=== PATIENT | female | born 1955 | race Caucasian/White ===

== ENCOUNTER 2016-07-28 07:00 | Outpatient (CLI) ==
[2016-01-19 13:09] VITALS: BMI 25.9
[2016-07-28 07:39] LABS: BASOPHILS % (AUTO) 0.8 % (0.0-3.0); EOSINOPHILS # (AUTO) 0.7 K/ul (0.0-0.7); EOSINOPHILS % (AUTO) 13.6 % (0.0-7.0); HEMATOCRIT 37.7 % (37.0-47.0); HEMOGLOBIN 12.9 g/dl (12.0-16.0); IMMATURE GRANULOCYTE % (AUTO) 0.2 % (0.0-5.0); LYMPHOCYTES % (AUTO) 41.7 (10.0-50.0); MEAN CORPUSCULAR HEMOGLOBIN 31.5 pg (27.0-31.0); MEAN CORPUSCULAR HGB CONC 34.2 (31.8-35.4); MONOCYTES # (AUTO) 0.3 K/uL (0.4-2.0); MONOCYTES % (AUTO) 6.4 (0-10); NEUTROPHILS # (AUTO) 1.8 K/ul (2.0-6.9); NEUTROPHILS % (AUTO) 37.3; PLATELET COUNT 201 10^3/uL (140-440); WHITE BLOOD COUNT 4.87 K/ul (4.6-10.2)
[2016-07-28 08:04] LABS: ALBUMIN 3.2 g/dL (3.4-5.0); BILIRUBIN,TOTAL 0.34 mg/dL (0.00-1.20); BUN/CREATININE RATIO 18.75; CALCIUM 8.9 mg/dL (8.2-10.2); CHOL/HDL RATIO 3.2 (4.5-5.5); CREATININE 0.8 mg/dL (0.60-1.30); TOTAL PROTEIN 6.4 g/dL (6.4-8.2)
--- NOTE | 2016-07-29 09:44 | MAMMO ---
EXAM: Digital screening mammogram HISTORY: Screening COMPARISON: 04/09/2015 FINDINGS: Digital MLO and CC views of the right and left breast were performed. There are scatter ed fibroglandular densities. There is no evidence for mass, asymmetry, distortion, or suspicious ca lcifications in either breast. IMPRESSION: 1. No evidence of malignancy in the right or left breast. 2. Annual screening mammogram is recommended in one year. BIRADS category 1, negative examination
== END 2016-07-28 07:01 | disposition home or self-care (01) ==
LOC: RAD 07:00
PROVIDERS: ATTEND Internal Medicine
DX: Z12.31 Encounter for screening mammogram for malignant neoplasm of breast (principal); E78.5 Hyperlipidemia, unspecified; M81.0 Age-related osteoporosis without current pathological fracture; K21.9 Gastro-esophageal reflux disease without esophagitis; M19.90 Unspecified osteoarthritis, unspecified site
CPT/HCPCS: 36415; 80053; 80061; 82306; 83036; 84439; 84443; 85025

== ENCOUNTER 2016-08-10 12:01 | Outpatient (CLI) ==
[2016-01-19 13:09] VITALS: BMI 25.9
--- NOTE | 2016-08-10 12:42 | DI ---
EXAM: LEFT HIP, 2 VIEWS HISTORY: Left hip pain FINDINGS: Hip joint is unremarkable. No fracture or dislocation. 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 Soft tissues are unremarkable. IMPRESSION: Hip joint within normal limits. Arthropathy of the left sacroiliac joint.
--- NOTE | 2016-08-11 10:44 | MRI ---
EXAM: Lumbar spine MRI without contrast. HISTORY: Lumbar radiculopathy. COMPARISON: Lumbar spine CT scan 03/11/2014 and lumbar spine MRI 02/19/2014. TECHNIQUE: Multiplanar, multisequence MR images were acquired lumbar spine without contrast. FINDINGS: Five lumbar-type vertebra are present. The lumbar vertebra are normal in height and intr insic bone marrow signal. There is minor thoracolumbar levoscoliosis centered at L2-3. There are s mall ventral osteophytes in the lumbar spine, disc desiccation from L2-3 to L4-5 and mild disc space narrowing at L3-4. Conus medullaris ends at L1 and has normal signal intensity. The visualized ki dneys are unremarkable. There are no paravertebral masses. T12-L1: The intervertebral disc is normal. L1-2: The intervertebral disc is normal. L2-3: There is a minor disc bulge that is asymmetric to the left which minimally narrows the inferi or neural foramina bilaterally. There is no central canal stenosis. L3-4: There is a mild disc bulge with marginal osteophytes that is asymmetric to the left which marv rows the inferior neural foramina bilaterally. Minor bilateral hypertrophic facet arthropathy and m ild ligamentum flavum hypertrophy is present. This causes mild left and minor right neural foramina l stenosis unchanged from the previous MRI. L4-5: There is a minor disc bulge that is asymmetric posteriorly and to the left with a possible ti ny left posterolateral disc extrusion which minimally effaces the left ventral thecal sac. This was not clearly demonstrated on the previous exam and may be artifactual or visualized due to differenc es in slice selection and small size. Minor bilateral facet arthropathy and mild ligamentum flavum hypertrophy is present. This causes left lateral recess stenosis with encroachment on the left L5 nerve roots. There is no central canal stenosis. L5-S1: The intervertebral disc is normal. IMPRESSION: 1. Minor lumbar degenerative spondylosis without significant change compared to 02/19/2014. 2. No lumbar spinal stenosis, significant foraminal stenosis or pars interarticularis defects.
== END 2016-08-10 12:02 | disposition home or self-care (01) ==
LOC: RAD 12:01
PROVIDERS: ATTEND Internal Medicine
DX: M54.16 Radiculopathy, lumbar region (principal); M25.552 Pain in left hip

== ENCOUNTER 2016-11-15 07:05 | Outpatient (CLI) | payer OTHER ==
[2016-01-19 13:09] VITALS: BMI 25.9
== END 2016-11-15 07:06 | disposition home or self-care (01) ==
LOC: LAB 07:05
PROVIDERS: ATTEND Physician Assistant
DX: E05.20 Thyrotoxicosis with toxic multinodular goiter without thyrotoxic crisis or storm (principal)
CPT/HCPCS: 36415; 84443

== ENCOUNTER 2016-12-23 08:21 | Outpatient (CLI) | payer OTHER ==
[2016-01-19 13:09] VITALS: BMI 25.9
[2016-12-23 08:38] LABS: BILIRUBIN,URINE Negative (NEGATIVE); KETONES,URINE Negative (NEGATIVE); LEUKOCYTE ESTERASE ,URINE Trace (NEGATIVE); NITRITE,URINE Negative (NEGATIVE); PROTEIN,URINE Negative (NEGATIVE); URINE, BLOOD Negative (NEGATIVE)
[2016-12-23 08:49] LABS: ADD URINE MICROSCOPIC YES
[2016-12-23 08:52] LABS: BACTERIA,URINE 3+ (NOT PRESENT)
== END 2016-12-23 08:22 | disposition home or self-care (01) ==
LOC: LAB 08:21
PROVIDERS: ATTEND Internal Medicine
DX: R50.9 Fever, unspecified (principal); M54.9 Dorsalgia, unspecified; R30.0 Dysuria
CPT/HCPCS: 81001; 87086; 87186

== ENCOUNTER 2017-02-02 13:32 | Outpatient (CLI) ==
[2016-01-19 13:09] VITALS: BMI 25.9
[2017-02-02 13:47] LABS: BILIRUBIN,URINE Negative (NEGATIVE); KETONES,URINE Negative (NEGATIVE); LEUKOCYTE ESTERASE ,URINE Negative (NEGATIVE); NITRITE,URINE Positive (NEGATIVE); PROTEIN,URINE Negative (NEGATIVE); URINE, BLOOD Negative (NEGATIVE)
[2017-02-02 14:15] LABS: ADD URINE MICROSCOPIC YES; BACTERIA,URINE 1+ (NOT PRESENT)
== END 2017-02-02 13:33 | disposition home or self-care (01) ==
LOC: LAB 13:32
PROVIDERS: ATTEND Internal Medicine
DX: N39.0 Urinary tract infection, site not specified (principal)
CPT/HCPCS: 81001; 87086

== ENCOUNTER 2017-03-07 07:08 | Outpatient (CLI) | payer OTHER ==
[2016-01-19 13:09] VITALS: BMI 25.9
[2017-03-07 07:55] LABS: BASOPHILS % (AUTO) 0.9 % (0.0-3.0); EOSINOPHILS # (AUTO) 0.3 K/ul (0.0-0.7); EOSINOPHILS % (AUTO) 7.3 % (0.0-7.0); HEMATOCRIT 38.7 % (37.0-47.0); HEMOGLOBIN 13.3 g/dl (12.0-16.0); IMMATURE GRANULOCYTE % (AUTO) 0.3 % (0.0-5.0); LYMPHOCYTES # (AUTO) 1.3 K/uL (0.60-3.4); LYMPHOCYTES % (AUTO) 39.1 (10.0-50.0); MEAN CORPUSCULAR HEMOGLOBIN 30.2 pg (27.0-31.0); MEAN CORPUSCULAR HGB CONC 34.4 (31.8-35.4); MONOCYTES # (AUTO) 0.3 K/uL (0.4-2.0); MONOCYTES % (AUTO) 8.7 (0-10); NEUTROPHILS # (AUTO) 1.5 K/ul (2.0-6.9); NEUTROPHILS % (AUTO) 43.7; PLATELET COUNT 200 10^3/uL (140-440); WHITE BLOOD COUNT 3.43 K/ul (4.6-10.2)
[2017-03-07 08:34] LABS: ALBUMIN 3.4 g/dL (3.4-5.0); ALBUMIN/GLOBULIN RATIO 0.94; BILIRUBIN,TOTAL 0.41 mg/dL (0.00-1.20); BUN/CREATININE RATIO 14.44; CALCIUM 9.6 mg/dL (8.2-10.2); CHOL/HDL RATIO 3.5 (4.5-5.5); CREATININE 0.9 mg/dL (0.60-1.30)
== END 2017-03-07 07:09 | disposition home or self-care (01) ==
LOC: LAB 07:08
PROVIDERS: ATTEND Internal Medicine
DX: E78.5 Hyperlipidemia, unspecified (principal); E53.8 Deficiency of other specified B group vitamins
CPT/HCPCS: 36415; 80053; 80061; 82607; 83036; 84443; 85025; 86803

== ENCOUNTER 2017-03-27 09:38 | Observation (INO) ==
--- NOTE | 2017-03-27 10:41 | ED.PDOC ---
General ED Provider: Dr. CECILIA WASHINGTON Chief Complaint: Back Pain Stated Complaint: back pain Time Seen by Physician: 09:45 (fall 1 day ago has paain t/l spine) Mode of Arrival: Walk-In Information Source: Patient Exam Limitations: No limitations Primary Care Provider: ARCELIA ALLEN Nursing and Triage Documentation Reviewed and Agree: Yes Musculoskeletal Complaint Exam - Back Pain Complaint/Exam Mechanism of Injury: Reports: Trauma Onset/Duration: 1 day . pt did fall Symptoms Are: Still present Timing: Constant Episodes Lasting: Days Initial Severity: Moderate Current Severity: Moderate Character: Reports: Aching, Throbbing, Spasmodic Aggravating: Reports: Movements, Lifting, Bending, Walking Alleviating: Reports: Rest, Position Associated Signs and Symptoms: Denies: Swelling, Redness, Bruising, Fever, Weakness, Numbness, Tingling, Abdominal pain, Flank pain, Bladder incontinence, Bowel incontinence, Weight loss, Pain with weight bearing Related History: Reports: Similar episode TAD Risk Factors: Reports: None AAA Risk Factors: Reports: None Cauda Equina Risk Factors: Reports: None Epidural Abcess Risk Factors: Reports: None Related Surgical History: Reports: None Focal Tenderness: Yes (t / l spine) Paraspinal Muscle Tenderness: Yes Paraspinal Muscle Spasm: Yes Scoliosis: No Lordosis: No Focal Weakness: Present: None Focal Sensory Loss: Present: None Gait: Present: Normal Differential Diagnoses: Strain, Sprain Review of Systems - Review Of Systems Constitutional: Reports: No symptoms Eyes: Reports: No symptoms Ears, Nose, Mouth, Throat: Reports: No symptoms Respiratory: Reports: No symptoms Cardiac: Reports: No symptoms GI: Reports: No symptoms : Reports: No symptoms Musculoskeletal: Reports: Back pain Skin: Reports: No symptoms Neurological: Reports: No symptoms Endocrine: Reports: No symptoms Hematologic/Lymphatic: Reports: No symptoms All Other Systems: Reviewed and Negative Past Medical History - Past Medical History Previously Healthy: Yes Endocrine: Reports: Dyslipidemia Cardiovascular: Reports: None Respiratory: Reports: None Hematological: Reports: None Gastrointestinal: Reports: GERD, Pancreatitis Genitourinary: Reports: None Neuro/Psych: Reports: Migraine Musculoskeletal: Reports: Back Pain Cancer: Reports: None Last Menstrual Period: n/a - Surgical History General Surgical History: Reports: Hysterectomy, Tonsillectomy - Family History Family History: Reports: Unknown - Social History Smoking Status: Former smoker Hx Substance Use: No Alcohol Screening: Occasionally Physical Exam - Physical Exam Appearance: Well-appearing, No pain distress, Well-nourished Eyes: VANDANA, EOMI, Conjunctiva clear ENT: Ears normal, Nose normal, Oropharynx normal Respiratory: Airway patent, Breath sounds clear, Breath sounds equal, Respirations nonlabored Cardiovascular: RRR, Pulses normal, No rub, No murmur GI/: Soft, Nontender, No masses, Bowel sounds normal, No Organomegaly Musculoskeletal: No calf tenderness, Limited ROM (lower back ) Skin: Warm, Dry, Normal color Neurological: Sensation intact, Motor intact, Reflexes intact, Cranial nerves intact, Alert, Oriented Psychiatric: Affect appropriate, Mood appropriate Physician Notification - Case Discussed Physician Notified: pmd Time of Notification: 11:00 (entire report was hand delivered to pmd) Admit To: Inpatient Critical Care Note - Critical Care Note Total Time (mins): 0 Course - Course Orders, Labs, Meds: Orders Category Date Time Status Morphine Sulfate [Morphine 2 mg/ml Syringe] MEDS 03/27/17 10:44 Stat 2 mg IM ONCE STA Ondansetron HCl/Pf [Zofran 4 mg/2 ml] MEDS 03/27/17 10:43 Stat 4 mg IM ONCE STA CT LUMBAR SPINE W/O CONTRAST Stat RADS 03/27/17 09:[address] THORACIC SPINE W/O CONTRAST Stat RADS 03/27/17 09:50 Ordered Medications Discontinued Medications Generic Name Dose Route Start Last Admin Trade Name Freq PRN Reason Stop Dose Admin Morphine Sulfate 2 mg 03/27/17 10:44 Morphine 2 Mg/Ml Syringe IM 03/27/17 10:45 ONCE STA Ondansetron HCl 4 mg 03/27/17 10:43 Zofran 4 Mg/2 Ml IM 03/27/17 10:44 ONCE STA Vital Signs: Temp Pulse Resp BP Pulse Ox 03/27/17 09:39 99.5 F 96 H 20 111/84 98 Departure - Departure Time of Disposition: 10:42 Disposition: ADMITTED INPATIENT Discharge Problem: Back pain Qualifiers: Back pain location: low back pain Chronicity: acute Back pain laterality: midline Sciatica presence: without sciatica Qualified Code(s): M54.5 - Low back pain Instructions: Low Back Strain (ED), Acute Low Back Pain (ED) Condition: Good Pt referred to PMD for follow-up: Yes Additional Instructions: Please call your Family Physician as soon as possible to schedule a follow-up appointment. Allergies/Adverse Reactions: Allergies cephalexin monohydrate [From Keflex] Adverse Reaction (Verified 03/27/17 09:54) sulfamethoxazole [From Bactrim] Adverse Reaction (Verified 03/27/17 09:54) tetracycline [Tetracycline] Adverse Reaction (Verified 03/27/17 09:54) trimethoprim [From Bactrim] Adverse Reaction (Verified 03/27/17 09:54) Home Medications: Ambulatory Orders Calcium Carbonate [Calcium] 500 mg PO BID 07/15/13 Cranberry 400 mg PO DAILY 07/15/13 Multivitamin [Multi-Vitamin Daily] 1 tab PO DAILY 07/15/13 Polyethylene Glycol 3350 [Miralax] 17 gm PO DAILY 07/15/13 Pravastatin Sodium 10 mg PO BEDTIME 07/15/13 Trazodone HCl 75 mg PO BEDTIME 07/15/13 Zolmitriptan [Zomig] 2.5 mg PO ONCE PRN 07/15/13 Estradiol/Levonorgestrel [Climara Pro Patch] 0.025 mg TP WEEKLY 07/16/13 Cyclobenzaprine HCl [Flexeril] 10 mg PO BID PRN 12/30/14 Diazepam 5 mg PO ev 6-8 hrs PRN #100 04/20/16 Oxycodone-Acetaminophen 5-325 [Percocet 5-325] 1 tab PO Q12H 03/27/17 Pantoprazole Sodium [Protonix] 40 mg PO DAILY 03/27/17 Sucralfate [Carafate] 1 gm PO ACHS PRN 03/27/17 Disposition Discussed With: Patient, Family
--- NOTE | 2017-03-27 10:42 | CT ---
EXAM: CT lumbar spine without contrast HISTORY: Pain, fall COMPARISON: MRI 08/10/2016 TECHNIQUE: CT lumbar spine performed without intravenous contrast. Coronal and sagittal reformatted images obtained. FINDINGS: There is an acute mild to moderate compression fracture of T12 at the superior endplate. Lumbar vertebral bodies normal in height. No fracture of the lumbar spine. Sacroiliac joints intac t with mild degenerative change. Small multilevel marginal osteophytes. Intervertebral disc spaces maintained. No significant central canal or neural foraminal narrowing identified. IMPRESSION: 1. Mild to moderate acute compression fracture T12. Please see separate report CT thoracic spine. 2. No fracture of the lumbar spine. 3. Mild degenerative changes.
[2017-03-27] MEDS ORDERED: ZOFRAN 4 MG/2 ML IM STA (10:43)
[2017-03-27] MEDS ORDERED: MORPHINE 2 MG/ML SYRINGE IM STA (10:44)
--- NOTE | 2017-03-27 10:44 | CT ---
EXAM: CT thoracic spine. HISTORY: Pain after fall. TECHNIQUE: CT thoracic spine without contrast. Multiplanar images provided. FINDINGS: Compared to CT thorax dated 01/19/2016. There is mild to moderate deformity at the superior endplate of T12 involving the anterior and middle columns which is new since the 2016 exam and has an acute appearance. There is no significant retro pulsion. Pedicles are intact. No other vertebral body deformity is seen. Otherwise normal vertebral body height. No traumatic central canal stenosis or paraspinal hematoma. There is a nearly 2 cm lo w attenuation lesion of the left hepatic lobe which is stable since 2016, likely representing a cyst. IMPRESSION: 1. Acute fracture of the superior endplate of T12. 2. Probable left hepatic lobe cyst. .
[2017-03-27] MEDS ORDERED: MORPHINE 2 MG/ML SYRINGE IVP STA (11:03)
[2017-03-27] MEDS ORDERED: MORPHINE 2 MG/ML SYRINGE IVP PRN (11:03)
[2017-03-27] MEDS ORDERED: ZOFRAN 4 MG/2 ML IVP PRN (11:04)
[2017-03-27] MEDS ORDERED: VALIUM PO PRN (11:05)
[2017-03-27] MEDS: SODIUM CHLORIDE 1,000 ML IV SCH (12:26)
[2017-03-27] MEDS ORDERED: TORADOL IVP STA (14:07)
[2017-03-27] MEDS ORDERED: DECADRON 4 MG/ML SDV IM STA (14:08)
[2017-03-27 14:32] LABS: BASOPHILS % (AUTO) 0.5 % (0.0-3.0); EOSINOPHILS # (AUTO) 0.3 K/ul (0.0-0.7); HEMOGLOBIN 13.1 g/dl (12.0-16.0); IMMATURE GRANULOCYTE % (AUTO) 0.5 % (0.0-5.0); LYMPHOCYTES # (AUTO) 1.2 K/uL (0.60-3.4); LYMPHOCYTES % (AUTO) 21.9 (10.0-50.0); MEAN CORPUSCULAR HEMOGLOBIN 30.2 pg (27.0-31.0); MEAN CORPUSCULAR HGB CONC 33.6 (31.8-35.4); MEAN CORPUSCULAR VOLUME 89.9 fl (81.0-99.0); MONOCYTES # (AUTO) 0.3 K/uL (0.4-2.0); MONOCYTES % (AUTO) 5.7 (0-10); NEUTROPHILS # (AUTO) 3.7 K/ul (2.0-6.9); NEUTROPHILS % (AUTO) 66.4; PLATELET COUNT 205 10^3/uL (140-440); RED BLOOD COUNT 4.34 10^6/ul (4.20-5.40); WHITE BLOOD COUNT 5.61 K/ul (4.6-10.2)
[2017-03-27 15:32] LABS: ALBUMIN 3.4 g/dL (3.4-5.0); ALBUMIN/GLOBULIN RATIO 0.94; ANION GAP 10.7; BILIRUBIN,TOTAL 0.37 mg/dL (0.00-1.20); BUN/CREATININE RATIO 18.82; CALCIUM 9.1 mg/dL (8.2-10.2); CREATININE 0.85 mg/dL (0.60-1.30); POTASSIUM 3.7 mmol/L (3.5-5.10)
[2017-03-27 16:21] VITALS: BMI 27.9
[2017-03-27] MEDS: DICLOFENAC SODIUM PO SCH (17:48)
[2017-03-27] MEDS ORDERED: ZOMIG PO PRN (18:57)
[2017-03-27] MEDS ORDERED: CARAFATE PO PRN (18:57)
[2017-03-27] MEDS: PERCOCET 5-325 PO SCH (19:13)
[2017-03-27] MEDS ORDERED: DESYREL ONE (20:27)
[2017-03-27] MEDS ORDERED: PROTONIX PO STA (20:43)
[2017-03-27] MEDS: CALCIUM 500 + VIT D 200 MG TABLET PO SCH (20:47)
[2017-03-27] MEDS: TORADOL IVP SCH (20:50)
[2017-03-27] MEDS ORDERED: TRAZODONE HCL 75 MG PO SCH ×21 (21:00)
[2017-03-27] MEDS ORDERED: NON-FORMULARY MEDICATION (Calcium Carbonate [Calcium] 500 MG) PO SCH (21:00)
[2017-03-27] MEDS ORDERED: PRAVASTATIN SODIUM 10 MG PO SCH (21:00)
[2017-03-27] MEDS ORDERED: PRAVACHOL PO SCH (21:00)
[2017-03-28] MEDS: SODIUM CHLORIDE 1,000 ML IV SCH (03:19)
[2017-03-28 04:41] LABS: BASOPHILS % (AUTO) 0.2 % (0.0-3.0); EOSINOPHILS % (AUTO) 0.2 % (0.0-7.0); HEMATOCRIT 36.9 % (37.0-47.0); HEMOGLOBIN 12.6 g/dl (12.0-16.0); IMMATURE GRANULOCYTE % (AUTO) 0.5 % (0.0-5.0); LYMPHOCYTES # (AUTO) 0.7 K/uL (0.60-3.4); MEAN CORPUSCULAR HEMOGLOBIN 30.1 pg (27.0-31.0); MEAN CORPUSCULAR HGB CONC 34.1 (31.8-35.4); MEAN CORPUSCULAR VOLUME 88.1 fl (81.0-99.0); MONOCYTES # (AUTO) 0.3 K/uL (0.4-2.0); MONOCYTES % (AUTO) 5.1 (0-10); NEUTROPHILS # (AUTO) 5.2 K/ul (2.0-6.9); PLATELET COUNT 195 10^3/uL (140-440); RED BLOOD COUNT 4.19 10^6/ul (4.20-5.40); WHITE BLOOD COUNT 6.27 K/ul (4.6-10.2)
[2017-03-28 05:02] LABS: ALBUMIN 3.1 g/dL (3.4-5.0); ALBUMIN/GLOBULIN RATIO 0.86; ANION GAP 11.4; BILIRUBIN,TOTAL 0.32 mg/dL (0.00-1.20); BUN/CREATININE RATIO 23.61; CREATININE 0.72 mg/dL (0.60-1.30); POTASSIUM 4.4 mmol/L (3.5-5.10); TOTAL PROTEIN 6.7 g/dL (6.4-8.2)
[2017-03-28] MEDS: TORADOL IVP SCH (05:45)
[2017-03-28] MEDS ORDERED: PROTONIX PO SCH (06:30)
[2017-03-28] MEDS: PERCOCET 5-325 PO SCH (06:36)
--- NOTE | 2017-03-28 08:38 | MRI ---
EXAM: MRI lumbar spine without and with IV contrast. DATE: 27 March 2017. HISTORY: Fall at home. New T12 vertebral fracture. Back pain. TECHNIQUE: Sagittal and axial T1W, T2W, and T1W postcontrast sequences of the lumbar spine along wit h sagittal IR and coronal T2W sequences were obtained using 1.2 Linda magnet. Contrast: Omniscan - 14 ml IV. COMPARISON: MRI thoracic spine [address] L-spine 27 March 2017. MRI L-spine August 22. FINDINGS: There are five [id number]-yeqhlyq lumbar vertebra. Slight (2 degrees) leftward curvature of the lumbar spine may be positioning artifact. A broad superior endplate indentation at T12 is observ ed, with IR hyperintensity and T1W low signal adjacent to a horizontal fracture line in the posterior aspect of T12 body. No other acute fracture, subluxation, osseous malignancy, or pars interarticula ris defect is demonstrated. Lumbar vertebra are normal in height. Bone marrow signal is overall nor mal. Tiny osteophytes noted at L2-3 and L3-4. Lumbar intervertebral discs are normal in height. No sacral fracture or stress reaction is apparent. SI joints are unremarkable. Conus medullaris termi nates at T12-L1. Visible spinal cord is normal. No abnormal contrast enhancement identified within the spinal cord, nerve roots, vertebral bodies, or intervertebral discs. No retroperitoneal lymphadenopathy, paraspinal mass, or aortic aneurysm is detected. Paraspinal musc ulature is symmetric bilaterally. Visible portions of the liver, spleen, and kidneys are normal. No bowel obstruction or neoplasm is evident. Sigmoid colon diverticulosis is suspected. Segmental analysis: T12-L1: Normal. L1-2: Normal. L2-3: Small concentric disc bulge and minor facet arthropathy cause triangulation of the canal, mini mal right foramen narrowing, and moderate/mild left foraminal stenosis. L3-4: Small concentric disc bulge and mild facet arthropathy cause minimal bilateral foraminal narro wing. No central canal stenosis. L4-5: Minor concentric disc bulge (with right foraminal annular fissure) and minimal facet disease c auses slight bilateral inferior foraminal encroachment. No central canal stenosis. L5-S1: Normal. IMPRESSIONS: 1. T12 superior endplate mild, recent compression fracture. 2. Lumbar spine minor spondylosis, facet arthropathy, and DDD - - similar to August 2016. 3. Multilevel lumbar foraminal narrowing (minor/mild). 4. Triangulation of the canal at L2-3.
--- NOTE | 2017-03-28 08:54 | MRI ---
EXAM: MRI thoracic spine without and with IV contrast. DATE: 27 March 2017. HISTORY: Fall at home. New fracture of T12. Back pain. TECHNIQUE: Sagittal and axial T1W, T2W, and T1W postcontrast sequences of the thoracic spine along w ith sagittal IR and coronal T2W sequences were obtained using 1.2 Linda magnet. CONTRAST: Omniscan - 14 ml IV. COMPARISON: MRI L-spine [address] T-spine 27 March 2017. FINDINGS: Sagittal surgical services assistant sequence of the cervical upper thoracic spine reveal straightening of the c ervical lordosis which may be due to positioning or muscle spasm. No acute c-spine fracture, subluxa tion, osseous malignancy, or jumped facet is evident. Cervical vertebra are normal in height. Mild disc space narrowing is noted at C5-6. Posterior disc/osteophyte complex at C5-6 appears cause mild central canal stenosis. Cervical spinal cord reveals no syrinx, cord edema, myelomalacia, or neoplas m. Visible brainstem and cerebellum are unremarkable. No neck mass or cervical lymphadenopathy is d emonstrated. There are 12 thoracic vertebra with paired ribs. No thoracic scoliosis is evident. A broad superior endplate indentation is observed at T12, with by IR/T2W bright and T1W dark signal adjacent to a hor izontal fracture line in the posterior aspect the T12 body near the superior plate. No other recent fracture, subluxation, osseous malignancy, or jumped facet is evident. Cervical vertebrae normal in height. Bone marrow signal is overall normal, although there are patchy areas of fatty infiltration. Thoracic intervertebral discs are normal in height. Conus medullaris terminates at T12-L1. No cor d edema, syrinx, myelomalacia, or neoplasm is evident. No abnormal contrast enhancement is identifie d within the spinal cord, nerve roots, vertebral bodies, or intervertebral discs. Visible thyroid gland, trachea, mainstem bronchi, and thoracic esophagus are normal. No aortic aneur ysm, dissection, or rupture is apparent. No mediastinal lymphadenopathy, hilar lymphadenopathy, pneu monia, lung mass, or pleural effusion is demonstrated. No rib fracture or suspicious neoplasm is see n. Visible portion of the abdomen reveals no abnormality in the spleen, adrenal glands, or kidneys. Right lobe liver is approximately 14 cm in length. A mildly lobulated, T2W bright, T1W dark, non-en hancing 2.2 x 2 cm lesion in the anterior segment right lobe liver near the dome is best seen on axia l image #35. This lesion corresponds with a low-density (HU = 12) focus on recent CT scan. Segmental analysis: C7-T1: Tiny posterior disc bulge does not cause cord compression or central canal stenosis. There a ppears to be mild right foraminal stenosis. T1-2: Normal. T2-3: Normal. T3-4: Normal. T4-5: Normal. T5-6: Normal. T6-7: Normal. T7-8: Normal. T8-9: Normal. T9-10: Normal, except for T2W bright, T1W dark, non-enhancing left foraminal 1.7 mm perineural cyst vs dural ectasia. T10-11: Normal, except for minor bilateral facet arthropathy. T11-12: Normal, except for minor bilateral foraminal dural ectasia. IMPRESSIONS: 1. T12 superior endplate recent, mild compression fracture. 2. Thoracic spine minor facet arthropathy. No foraminal stenosis. 3. No thoracic cord compression or central canal stenosis. 4. Multilevel cervical DDD. Possible mild central stenosis at C5-6 and C6-7. 5. Right lobe liver lesion is most likely a benign cyst with thin internal septations. Ultrasound o r CT scan without/with IV contrast are appropriate modalities for complete a more complete evaluation of this hepatic lesion.
[2017-03-28] MEDS ORDERED: MULTIVITAMIN TABLET PO SCH (09:00)
[2017-03-28] MEDS ORDERED: DECADRON 4 MG/ML SDV IM SCH (09:00)
[2017-03-28] MEDS ORDERED: NON-FORMULARY MEDICATION (Cranberry [Cranberry] 400 MG) PO SCH (09:00)
[2017-03-28] MEDS ORDERED: MIRALAX PO SCH (09:00)
[2017-03-28] MEDS: CALCIUM 500 + VIT D 200 MG TABLET PO SCH (09:10)
[2017-03-28] MEDS: DICLOFENAC SODIUM PO SCH (09:10)
[2017-03-28 10:04] VITALS: BP 110/75; TEMP 97.8
--- NOTE | 2017-03-28 11:06 | CM.DICTOOL ---
ADMISSION: 03/27/17 11:13 DISCHARGE: 03/28/17 DATE OF SERVICE: 03/28/17 FINAL DIAGNOSIS T 12 FRACTURE FALL AT HOME-GROUND LEVEL DYSLIPIDEMIA GERD THYROID NODULES ANEMIA MIGRAINE HEADACHES INSOMNIA TMJ HISTORY OF PANCREATITIS S/P STENT APPLICATION CHRONIC BACK PAIN (PAIN MANAGEMENT, DR. TIRADO) HYSTERECTOMY TONSILLECTOMY CHOLECYSTECTOMY RIGHT LOWER EXTREMITY VEIN STRIPPING LAST VITALS Temp Pulse Resp BP Pulse Ox 97.8 F 77 20 110/75 98 03/28/17 10:00 03/28/17 10:00 03/28/17 10:00 03/28/17 10:00 03/28/17 10:00 ACTIVE HOME MEDICATIONS Calcium/Vitamin D (Calcium 500 + Vit D 200 Mg Tablet) 1 each PO DAILY [facility] Last Admin: 03/28/17 09:10 Dose: 1 each Diazepam (Valium) 5 mg PO Q6-8H PRN PRN Reason: Analgesia Diclofenac Sodium (Diclofenac Sodium) 75 mg PO DAILY [facility] X TWO WEEKS (NEW) Last Admin: 03/28/17 09:10 Dose: 75 mg Multivitamins (Multivitamin Tablet) 1 tab PO DAILY [facility] Last Admin: 03/28/17 09:10 Dose: 1 tab Cranberry [Cranberry] 400 mg PO DAILY [facility] Last Admin: 03/28/17 09:16 Dose: Not Given Oxycodone/Acetaminophen (Percocet 5-325) 1 tab PO TID [facility] (DOSE CHANGE) Last Admin: 03/28/17 06:36 Dose: 1 tab Pantoprazole Sodium (Protonix) 40 mg PO QDAC [facility] Last Admin: 03/28/17 05:45 Dose: 40 mg Polyethylene Glycol (Miralax) 17 gm PO DAILY [facility] Last Admin: 03/28/17 09:11 Dose: 17 gm Pravastatin Sodium (Pravachol) 10 mg PO BEDTIME [facility] Last Admin: 03/27/17 20:37 Dose: 10 mg Sucralfate (Carafate) 1 gm PO ACHS PRN PRN Reason: Abdominal Pain Trazodone HCl (Desyrel) 75 mg PO BEDTIME [facility] Zolmitriptan (Zomig) 2.5 mg PO DAILY PRN PRN Reason: MIGRAINE ALLERGIES cephalexin monohydrate [From Keflex] Adverse Reaction (Verified 03/27/17 09:54) sulfamethoxazole [From Bactrim] Adverse Reaction (Verified 03/27/17 09:54) tetracycline [Tetracycline] Adverse Reaction (Verified 03/27/17 09:54) trimethoprim [From Bactrim] Adverse Reaction (Verified 03/27/17 09:54) NEW PRESCRIPTIONS: PERCOCET 5-325 MG, TAKE ONE TABLET BY MOUTH THREE TIMES DAILY FOR PAIN (#15 - NO REFILLS) MEDROL DOSEPAK, TAKE DIRECTED WITH FOOD DICLOFENAC 75 MG, TAKE ONE TABLET BY MOUTH DAILY WITH FOOD FOR 14 DAYS SMOKING: FORMER SMOKER NONE NOW DISEASE SPECIFIC EDUCATION: VERTEBRAL COMPRESSION FRACTURES HOME MEDICATIONS NEW PRESCRIPTIONS FOLLOW UP PAIN MANAGEMENT REFERRAL ACTIVITY LAB REVIEW: 03/28/17 04:38 03/28/17 04:38 03/28/17 04:38: Sodium 139, Potassium 4.4, Chloride 108 H, Carbon Dioxide 24, Anion Gap 11.4, BUN 17, Creatinine 0.72, Estimated GFR (MDRD) 83.00, BUN/ Creatinine Ratio 23.61, Glucose 106, Calcium 9.0, Total Bilirubin 0.32, AST 18, ALT 16, Alkaline Phosphatase 86, Total Protein 6.7, Albumin 3.1 L, Globulin 3.6 , Albumin/Globulin Ratio 0.86 03/28/17 04:38: WBC 6.27, RBC 4.19 L, Hgb 12.6, Hct 36.9 L, MCV 88.1, MCH 30.1, MCHC 34.1, RDW Coeff of Mona 13.0, Plt Count 195, Immature Gran % (Auto) 0.5, Neut % (Auto) 83.0, Lymph % (Auto) 11.0, [place] % (Auto) 5.1, Eos % (Auto) 0.2, Baso % (Auto) 0.2, Immature Gran # (Auto) 0.0, Neut # 5.2, Lymph # 0.7, [place] # 0.3 L, Eos # 0.0, Baso # 0.0 03/27/17 14:13: Sodium 141, Potassium 3.7, Chloride 106, Carbon Dioxide 28, Anion Gap 10.7, BUN 16, Creatinine 0.85, Estimated GFR (MDRD) 68.00, BUN/ Creatinine Ratio 18.82, Glucose 106, Calcium 9.1, Total Bilirubin 0.37, AST 20, ALT 17, Alkaline Phosphatase 85, Total Protein 7.0, Albumin 3.4, Globulin 3.6, Albumin/Globulin Ratio 0.94, TSH 1.234, Free T4 0.91 03/27/17 14:13: WBC 5.61, RBC 4.34, Hgb 13.1, Hct 39.0, MCV 89.9, MCH 30.2, MCHC 33.6, RDW Coeff of Mona 13.1, Plt Count 205, Immature Gran % (Auto) 0.5, Neut % (Auto) 66.4, Lymph % (Auto) 21.9, [place] % (Auto) 5.7, Eos % (Auto) 5.0, Baso % (Auto) 0.5, Immature Gran # (Auto) 0.0, Neut # 3.7, Lymph # 1.2, [place] # 0.3 L, Eos # 0.3, Baso # 0.0 PLAN: DISCHARGE HOME TODAY RETURN TO SEE DR. ALLEN IN 5-7 DAYS. PLEASE PHONE THE OFFICE TO SCHEDULE YOUR FOLLOW UP APPOINTMENT ([phone]) KEEP YOUR APPOINTMENT WITH PAIN MANAGEMENT DR. TIRADO [address] [place] [address] 04/03/17 AT 10:30 A.M. WE ARE IN THE PROCESS OF ARRANGING AN APPOINTMENT WITH DR. NOLAN SHELL/[facility] [address] [place] [address] 04/06/17 AT 9:50 A.M. (BRING DISC FROM [facility]) RESUME YOUR HOME MEDICATIONS PER LIST PROVIDED BY THE NURSING STAFF PLEASE NOTE THE INCREASE IN ADMINISTRATION TIMES FOR YOUR PERCOCET TO THREE TIMES DAILY NEW PRESCRIPTIONS: PERCOCET 5-325 MG, TAKE ONE TABLET BY MOUTH THREE TIMES DAILY FOR PAIN (#15 - NO REFILLS) MEDROL DOSEPAK, TAKE DIRECTED WITH FOOD DICLOFENAC 75 MG, TAKE ONE TABLET BY MOUTH DAILY WITH FOOD FOR 14 DAYS ACTIVITY: REST AT HOME UNTIL OTHERWISE ADVISED BY YOUR PHYSICIAN NO WORK UNTIL RELEASED BY DR. ALLEN DIET: HEALTHY HEART SUMMARY THE PATIENT IS ALERT AND ORIENTED X3. SHE CURRENTLY RESIDES AT HOME WITH HER SPOUSE. SHE HAS BEEN INDEPENDENT WITH ADL'S AND REQUIRES NO DME, HOME HEALTH OR HOMEMAKING SERVICES. SHE DESIRES TO RETURN TO HER HOME AT DISCHARGE. CURRENT CODE STATUS: FULL CODE LAMONTE NOYOLA APRN ARCELIA GERMAIN M.D.
--- NOTE | 2017-03-28 11:15 | PCM.PROG ---
Attending Provider: ATTENDING PROVIDER: Dr. ARCELIA TEIXEIRA This patient is seen with Raquel Lemon, Nurse Practitioner. DATE OF SERVICE: 03/28/17 SUBJECTIVE: This 61 year old WHITE/ F was hospitalized 03/27/17. The patient is sitting in bed, alert. She states pain is a 2 on a 1 to 10 scale after receiving Toradol and Percocet. She is able to move better than yesterday and would like to go home. REVIEW OF SYSTEMS: CONSTITUTIONAL: No night sweats. No fatigue, malaise, lethargy. No fever or chills. HEENT: Eyes: No visual changes. No eye pain. No eye discharge. ENT: No runny nose. No epistaxis. No sinus pain. No odynophagia. No congestion. RESPIRATORY: No cough, no congestion. No hemoptysis. No shortness of breath. CARDIOVASCULAR: No angina symptoms. No CHF symptoms. No atypical chest pain for CAD. No palpitations. No orthopnea.. GASTROINTESTINAL: No abdominal pain. No nausea or vomiting. No diarrhea or constipation. No hematemesis. No hematochezia. GENITOURINARY: No urgency. No frequency. No dysuria. No hematuria. No obstructive symptoms. No discharge. No pain. No significant abnormal bleeding. MUSCULOSKELETAL: Acute back pain. NEUROLOGICAL: Awake, alert, oriented to time, place and person. No headache. No neck pain. No syncope. No seizures. No dizziness. PSYCHIATRIC: Not anxious. No depression. No suicidal thoughts. No homicidal thoughts. SKIN: No rash. No lesions. No wounds. ENDOCRINE: No unexplained weight loss. No weight gain. HEMATOLOGIC/LYMPHATIC: No anemia. No purpura. No petechiae. No prolonged or excessive bleeding. No palpable lymph nodes. PHYSICAL EXAMINATION: GENERAL: The patient is awake, alert and oriented, sitting in bed in no distress. VITAL SIGNS: Temperature 98.0 F, Pulse 76, Respiratory Rate 20, BP 123/79, Pulse Ox 96% HEENT: Head normocephalic, atraumatic. Eyes: Extraocular muscles are intact. Pupils are equal, round and reactive to light and accommodation. Ears: No lesions. Nose appeared normal. Throat: No exudate or erythema. NECK: Supple. No JVD, no carotid bruit. No lymphadenopathy or thyromegaly. LUNGS: Clear to auscultation. Percussion note normal. Chest symmetrical. HEART: S1, S2, no S3. No murmurs. No cyanosis or clubbing. No ascites. Pulses: Dorsalis pedis and posterior tibial pulses +1 to +2 both sides. ABDOMEN: Soft. Non-tender. Bowel sounds active. No CVA tenderness. No mass felt. EXTREMITIES: No edema. Full range of motion of all extremities, equal. Tenderness over T12 area. NEUROLOGIC: No focal deficit. Cranial nerves II through XII are grossly intact. No headache, no double vision or headache. SKIN: Not dry. Intact. Turgor-normal. LYMPHATIC: No palpable lymph nodes/no lymphedema. MUSCULOSKELETAL: Normal joints with no swelling. Muscle tone is normal. LAB REVIEW: 03/28/17 04:38 03/28/17 04:38 03/28/17 04:38: Sodium 139, Potassium 4.4, Chloride 108 H, Carbon Dioxide 24, Anion Gap 11.4, BUN 17, Creatinine 0.72, Estimated GFR (MDRD) 83.00, BUN/ Creatinine Ratio 23.61, Glucose 106, Calcium 9.0, Total Bilirubin 0.32, AST 18, ALT 16, Alkaline Phosphatase 86, Total Protein 6.7, Albumin 3.1 L, Globulin 3.6 , Albumin/Globulin Ratio 0.86 03/28/17 04:38: WBC 6.27, RBC 4.19 L, Hgb 12.6, Hct 36.9 L, MCV 88.1, MCH 30.1, MCHC 34.1, RDW Coeff of Mona 13.0, Plt Count 195, Immature Gran % (Auto) 0.5, Neut % (Auto) 83.0, Lymph % (Auto) 11.0, [place] % (Auto) 5.1, Eos % (Auto) 0.2, Baso % (Auto) 0.2, Immature Gran # (Auto) 0.0, Neut # 5.2, Lymph # 0.7, [place] # 0.3 L, Eos # 0.0, Baso # 0.0 03/27/17 14:13: Sodium 141, Potassium 3.7, Chloride 106, Carbon Dioxide 28, Anion Gap 10.7, BUN 16, Creatinine 0.85, Estimated GFR (MDRD) 68.00, BUN/ Creatinine Ratio 18.82, Glucose 106, Calcium 9.1, Total Bilirubin 0.37, AST 20, ALT 17, Alkaline Phosphatase 85, Total Protein 7.0, Albumin 3.4, Globulin 3.6, Albumin/Globulin Ratio 0.94, TSH 1.234, Free T4 0.91 03/27/17 14:13: WBC 5.61, RBC 4.34, Hgb 13.1, Hct 39.0, MCV 89.9, MCH 30.2, MCHC 33.6, RDW Coeff of Mona 13.1, Plt Count 205, Immature Gran % (Auto) 0.5, Neut % (Auto) 66.4, Lymph % (Auto) 21.9, [place] % (Auto) 5.7, Eos % (Auto) 5.0, Baso % (Auto) 0.5, Immature Gran # (Auto) 0.0, Neut # 3.7, Lymph # 1.2, [place] # 0.3 L, Eos # 0.3, Baso # 0.0 ASSESSMENT: 1. T12 fracture 2. Chronic DJD spine PLAN: 1. Discharge home today. 2. Increase Percocet 5 mg t.i.d. 3. Diclofenac take with food 75 mg daily times two weeks 4. Medrol Dosepak 4 mg times five days 5. Appointment with Dr. Aguayo 04/03/17 Plan and coordination of the patient's care discussed in the presence of Ore Washer and nurse. CONDITION: Stable SCRIBED BY: YAMIL BHATT Adventure Therapist scribed while in presence of service performed by Dr. Teixeira/Raquel Lemon APRN on 03/28/17 ([id number])
--- NOTE | 2017-03-28 12:29 | DI ---
EXAM: Two views of the chest. History: Chest trauma. Comparison: Chest radiograph 01/19/2016, lumbar spine CT 03/27/2017 Findings: Heart size is normal. No focal consolidation. No appreciable pleural fluid and no pneumo thorax. Cholecystectomy clips. Stable mild elevation of the right hemidiaphragm. T12 compression fr acture again identified. Impression: No acute cardiopulmonary process.
[2017-03-28] MEDS ORDERED: DESYREL PO SCH (21:00)
--- NOTE | 2017-03-29 11:31 | HP ---
DATE OF SERVICE: 03/27/17 HISTORY OF PRESENT ILLNESS: This is a 61-year-old white female who came to the emergency room after experiencing a fall yesterday and has been experiencing severe back pain. She does have a history of chronic back pain, degenerative joint disease for which she sees Dr. Callejas for injections every few months. Her next appointment should be in March. She takes Percocet for this p.r.n. PAST MEDICAL HISTORY: Migraine headache Insomnia Degenerative joint disease - sees Dr. Callejas Dyslipidemia Status post ablation of the nerve roots with sciatica Thyroid nodule - sees Dr. Porter yearly at ENT Vitamin B12 deficiency Plantar fascitis PAST SURGICAL HISTORY: Hysterectomy Tonsillectomy REVIEW OF SYSTEMS: CONSTITUTIONAL: No night sweats. No fatigue, malaise, lethargy. No fever or chills. HEENT: Eyes: No visual changes. No eye pain. No eye discharge. ENT: No runny nose. No epistaxis. No sinus pain. No sore throat. No odynophagia. No ear pain. No congestion. RESPIRATORY: No cough, no congestion. No wheeze. No hemoptysis. No shortness of breath. CARDIOVASCULAR: No angina symptoms. No CHF symptoms. No atypical chest pain for CAD. No palpitations. No orthopnea. GASTROINTESTINAL: No abdominal pain. No nausea or vomiting. No diarrhea or constipation. No hematemesis. No hematochezia. GENITOURINARY: No urgency. No frequency. No dysuria. No hematuria. No obstructive symptoms. No discharge. No pain. No significant abnormal bleeding. MUSCULOSKELETAL: Positive for severe back pain. NEUROLOGICAL: The patient is alert and oriented. No headache. No neck pain. No syncope. No seizures. No dizziness. PSYCHIATRIC: Not anxious. No depression. No suicidal thoughts. No homicidal thoughts. SKIN: No rash. No lesions. No wounds. ENDOCRINE: No unexplained weight loss. No weight gain. HEMATOLOGIC/LYMPHATIC: No anemia. No purpura. No petechiae. No prolonged or excessive bleeding. No palpable lymph nodes. PERSONAL/FAMILY/SOCIAL HISTORY: The patient is a former smoker. She denies any alcohol or illicit drug use. MEDICATIONS: (HOME) Miralax 17 gm p.o. daily Zomig 2.5 mg p.o. once p.r.n. Trazodone 75 mg p.o. bedtime Pravastatin 10 mg p.o. bedtime Multivitamin one tab p.o. daily Cranberry 400 mg p.o. daily Calcium 500 mg p.o. b.i.d. Climara Pro Patch 0.025 mg TP weekly Flexeril 10 mg p.o. b.i.d. p.r.n. Diazepam 5 mg p.o. every 6-8hr p.r.n. Oxycodone-Acetaminophen 5-325 one tab p.o. q.12h Carafate 1 gm p.o. a.c. and h.s. p.r.n. Protonix 40 mg p.o. daily ALLERGIES: CEPHALEXIN MONOHYDRATE, SULFAMETHOXAZOLE, TETRACYCLINE, TRIMETHOPRIM PHYSICAL EXAMINATION: APPEARANCE: The patient is well-appearing, in acute pain and distress. HEENT: Head normocephalic, atraumatic. Eyes: Extraocular muscles are intact. Pupils are equal, round and reactive to light and accommodation. Conjunctiva clear. Ears: Tympanic membranes are normal bilaterally. Nose appeared normal. Throat: No exudate or erythema. NECK: Supple. No JVD, no carotid bruit. No lymphadenopathy or thyromegaly. LUNGS: Clear breath sounds in all lobes, equal, respirations nonlabored. Airway is patent. Percussion note normal. Chest symmetrical. HEART: Regular rate and rhythm. S1, S2, no S3. No murmurs, clicks or rubs. No cyanosis or clubbing. No ascites. Pulses: Dorsalis pedis and posterior tibial pulses +1 to +2 both sides. ABDOMEN: Soft. Nontender. Bowel sounds active times four quadrants. No hepatosplenomegaly. No CVA tenderness. No mass felt. EXTREMITIES: No edema. No calf tenderness. Full range of motion of all extremities, equal. Negative Disha's sign. NEUROLOGIC: Alert and oriented times three. No focal deficit. Cranial nerves II through XII are grossly intact. No headache, no double vision or headache. SKIN: Clean, dry and intact. LYMPHATIC: No palpable lymph nodes/no lymphedema. MUSCULOSKELETAL: Decreased strength in lower extremities due to back pain. Positive for back pain. No swelling of any joints. RADIOLOGY INTERPRETATION: CT reveals fracture of the T12, spine. There is no retropulsion. ASSESSMENT: 1. FRACTURE OF T12 2. SEVERE PAIN 3. CHRONIC BACK PAIN 4. DEGENERATIVE JOINT DISEASE PLAN: 1. Will admit for pain control 2. Toradol 30 mg q.8hr p.r.n. 3. Morphine 2 mg q.6hr p.r.n. 4. Continue all home medications 5. 1 cc Decadron today 6. Routine telemetry orders 7. CBC, CMP daily 8. Chest x-ray 9. Will followup closely TIME SPENT: More than 70 minutes. MTDD
--- NOTE | 2017-03-29 11:57 | DS ---
DATE OF SERVICE: 03/28/17 FINAL DIAGNOSIS: 1. T12 FRACTURE 2. FALL AT HOME - GROUND LEVEL 3. DYSLIPIDEMIA 4. GERD 5. THYROID NODULES 6. ANEMIA 7. MIGRAINE HEADACHES 8. INSOMNIA 9. TMJ 10. HISTORY OF PANCREATITIS STATUS POST STENT APPLICATION 11. CHRONIC BACK PAIN (PAIN MANAGEMENT, DR. CALLEJAS) 12. HYSTERECTOMY 13. TONSILLECTOMY 14. CHOLECYSTECTOMY 15. RIGHT LOWER EXTREMITY VEIN STRIPPING DISCHARGE INSTRUCTIONS: 1. Discharge home today 2. Followup appointment with Dr. Teixeira in 5 to 7 days. Please phone office to schedule your followup appointment, [phone]. 3. Keep your followup appointment with Dr. Callejas/[id number]/ [place] [address] ([phone]) 04/03/17 at 10: 30 a.m. 4. We are in the process of making an appointment with Dr. Pk Tovar/ [place] Tian/[address]/[employer] [address] [place] [address] ([phone]) 04/06/17 at 9;50 a.m. (bring disk from [facility]) MEDICATIONS AT DISCHARGE: Calcium/Vitamin D (Calcium 500 + Vitamin D 200 mg tablet) one each p.o. daily [facility] Diazepam (Valium) 5 mg p.o. q.6-8h p.r.n. Multivitamin one tab p.o. daily SOLOMON Cranberry 400 mg p.o. daily SOLOMON Percocet one tab p.o. t.i.d. SOLOMON (dose change) Protonix 40 mg q.d a.c. SOLOMON Miralax 17 gm p.o. daily SOLOMON Pravachol 10 mg p.o. bedtime SOLOMON Carafate 1 gm p.o. a.c. h.s. p.r.n. Trazodone 75 mg p.o. bedtime SOLOMON Zolmitriptan (Zomig) 2.5 mg p.o. daily p.r.n. NEW PRESCRIPTIONS: Percocet 5-325 mg, take one tablet by mouth three times daily for pain (#15 - no refill) Medrol Dosepak take as directed with food Diclofenac 75 mg take one tablet by mouth daily with food for 14 days DIET INSTRUCTIONS: Healthy Heart ACTIVITY: Rest at home until otherwise advised by your physician No work until released by Dr. Teixeira SMOKING: Former smoker None now DISEASE SPECIFIC EDUCATION: Vertebral compression fractures Home medications New prescriptions Follow Up Pain Management Referral Activity HOSPITAL COURSE: This is a 61-year-old white female who was admitted for pain control after going to the emergency room. She had fallen on Monday in the middle of the night. She was experiencing a Charley-horse in her left calf muscle, stood up to stretch out the muscle then cramped in the right leg and subsequently fell. She presented to the ER with severe back pain. She does have underlying degenerative joint disease of the spine. CT scan revealed fracture of the T12 vertebrae with no retropulsion. She was experiencing severe pain. She was admitted, placed on Diclofenac 75 mg p.o. daily, Toradol 30 mg q.8hr IV p.r.n. for pain. She does see pain management for chronic back pain, degenerative joint disease, bilateral hip pain and she is on Percocet 5 b.i.d. regularly so that was continued. She also received 4 mg of Decadron IM. This morning after examination she said she was able to get up and move around much better and her pain had been more controlled and she stated that she would like to go home where she felt she could rest better. We have scheduled her an appointment with Dr. Callejas on 04/03 as he has agreed to see her - that his her pain management doctor. He has agreed to get her in with Dr. Tian, spine doctor. An MRI again confirmed the T12 fracture with no retropulsion. She will be discharged home on Percocet 5 mg t.i.d. p.r.n. for pain along with Diclofenac 75 mg p.o. daily with food for the next 2 weeks and a Medrol Dosepak 4 mg for the next 5 days. The patient stated pain had been controlled. She is going to be discharged home. She is not to return to work until she has seen Dr. Callejas and also been seen by us. We will see her early next week. Her labs have all been normal. Despite her having charley horses, electrolytes were normal. Sodium 139, potassium 4.4, BUN 17, creatinine 0.72, white count 12.6, hematocrit 36.9, platelets 195, white count 6.2. Blood pressure and vital signs have been stable. Today on discharge, BP 123/79, heart rate 76, pulse ox 96%. We had discussed with her pain control and pain medications. She is to go home, be on strict bedrest and we will followup with her closely. TIME SPENT: More than 60 minutes. MALIK
--- NOTE | 2017-03-29 13:30 | PN ---
DATE OF SERVICE: 03/27/17 SUBJECTIVE: The patient was hospitalized with history of fall and has sustained a T12 acute compression fracture. The patient is complaining of pain. The pain intensity varies from 2 to 8. The patient is on Oxycodone from Pain Management and beside that she is getting Morphine. I am going to give her Toradol 30mg Q 8 hours and Voltaren 75 PO twice a day with meals with 1cc Decadron now and 1cc Decadron in the morning. The patient's neurological status is normal and moving all of her extremities. The patient has mild tenderness in T12 area. Cardiovascular status is stable. ASSESSMENT: 1. Acute compression fracture involving T12 PLAN: 1. Given anti-inflammatory 2. Will send all copies of report to Dr. Tovar. The patient is followed by Dr. Tovar for back problems along with Pain Management Dr. Callejas. 3. The x-ray shows no retropulsion. Will do MRI with contrast. CONDITION: Stable. TIME SPENT: More than 30 minutes. Plan and coordination of the patient's care discussed in the presence of nurse. MALIK
== END 2017-03-28 12:20 | disposition home or self-care (01) ==
LOC: ED 09:38 → UNDOADMIN 11:13 → INTOOBSV 11:13 → MEDSURG B 11:13
PROVIDERS: ADMIT Internal Medicine; ATTEND Internal Medicine
DX: S22.081A Stable burst fracture of T11-T12 vertebra, initial encounter for closed fracture (principal); G89.29 Other chronic pain; M47.892 Other spondylosis, cervical region; M47.896 Other spondylosis, lumbar region; M62.831 Muscle spasm of calf; D64.9 Anemia, unspecified; K21.9 Gastro-esophageal reflux disease without esophagitis; E04.1 Nontoxic single thyroid nodule; G43.909 Migraine, unspecified, not intractable, without status migrainosus; G47.00 Insomnia, unspecified; E78.5 Hyperlipidemia, unspecified; W18.30XA Fall on same level, unspecified, initial encounter; Y92.009 Unspecified place in unspecified non-institutional (private) residence as the place of occurrence of the external cause; Z79.899 Other long term (current) drug therapy
CPT/HCPCS: 36415; 80053; 84439; 84443; 85025; 96372; 96374; 99284

== ENCOUNTER 2017-06-15 14:46 | Outpatient (CLI) ==
--- NOTE | 2017-06-15 15:06 | DI ---
EXAM: The upper lumbar spine two views HISTORY: Compression fracture T11-T12. FINDINGS: Compared to CT thoracic spine of 03/27/2017. Superior endplate deformity at T12 appears mi nimally more noticeable. No gross retropulsion. Other vertebral bodies have normal height. No scol iosis. Sacroiliac joints are within normal limits. Bones appear mildly demineralized. IMPRESSION: Probable subtle progression of vertebral body height loss at T12 since previous exam.
== END 2017-06-15 14:47 | disposition home or self-care (01) ==
LOC: RAD 14:46
PROVIDERS: ATTEND Nurse Practitioner
DX: S22.080A Wedge compression fracture of T11-T12 vertebra, initial encounter for closed fracture (principal)

== ENCOUNTER 2017-08-01 08:04 | Outpatient (CLI) | payer OTHER ==
--- NOTE | 2017-08-01 08:53 | DEXA ---
Exam: Bone densitometry DEXA scan performed on the [facility] Comparison: 09/01/2010. Reason for exam: Osteoporosis. FINDINGS: Imaging was obtained of the lumbar spine and deemed to be adequate for interpretation. Total BMD of the lumbar spine measures 0.907 grams per centimeter squared. T-score -2.3. Z-score -1.5 WHO classification suggest osteopenia. Imaging was obtained of the right and left hip and deemed to be adequate for interpretation. The total BMD of the left hip measures 0.895 grams per centimeter squared. T-score measures -0.9. Z-score -0.3 The total BMD of the right hip measures 0.844 grams per centimeter squared. T-score -1.3. Z-score -0.7 WHO classification suggests osteopenia in the right hip and normal bone mineral density in the left h ip. Impression: 1. WHO classification suggests osteopenia in the lumbar spine and right hip with normal bone mineral density in the left hip. 2. WHO fracture risk assessment tool (FRAX) 10-year fracture risk percentage Major osteoporotic fracture risk over 10 years. 14.1%. Hip fracture risk over 10 years. 1.4%.
--- NOTE | 2017-08-02 10:10 | MAMMO ---
EXAM: Screening digital mammogram with 3-D tomosynthesis and CAD HISTORY: Screening mammogram. COMPARISON: Mammogram 07/28/2016 and 04/09/2015 FINDINGS: The breast parenchyma demonstrates scattered fibroglandular densities. Benign right breast nodules seen best on L low has been stable since 2014. There is no new or suspicious calcification or breast mass. There is no architectural distortion. There has been no significant interval change . IMPRESSION: No new or suspicious nodule or calcification. Recommendation: Annual screening mammogram. BIRADS category II: Benign findings
== END 2017-08-01 08:05 | disposition home or self-care (01) ==
LOC: RAD 08:04
PROVIDERS: ATTEND Obstetrics & Gynecology
DX: Z12.31 Encounter for screening mammogram for malignant neoplasm of breast (principal); Z13.820 Encounter for screening for osteoporosis
CPT/HCPCS: 77067

== ENCOUNTER 2017-08-31 07:14 | Outpatient (CLI) | payer OTHER ==
--- NOTE | 2017-08-31 10:10 | DI ---
Exam: Two x-rays of the abdomen. Comparison: MRCP performed 06/02/2011. CT thoracic spine performed 03/27/2017. Reason for exam: Kidney stone. FINDINGS: No discrete calcific densities are seen overlying either kidney. There is a moderate stoo l burden seen throughout the colon. Operative changes in the right upper quadrant presumably from gallbladder removal. Impression: No discrete calcific densities are seen overlying the expected location of either kidney.
--- NOTE | 2017-08-31 10:17 | DI ---
Exam: Two x-rays of the right calcaneus. Comparison: None available. Reason for exam: Pain. FINDINGS: No acute fracture or malalignment. The calcaneus appears intact. Degenerative disease is seen with calcaneal enthesiophyte formation. Impression: No acute fracture or malalignment is seen within the calcaneus.
== END 2017-08-31 07:15 | disposition home or self-care (01) ==
LOC: RAD 07:14
PROVIDERS: ATTEND Internal Medicine
DX: E78.5 Hyperlipidemia, unspecified (principal); G43.909 Migraine, unspecified, not intractable, without status migrainosus; M79.671 Pain in right foot; Z79.899 Other long term (current) drug therapy; Z87.442 Personal history of urinary calculi
CPT/HCPCS: 36415; 80053; 80061; 83036; 84443; 85025

== ENCOUNTER 2018-01-03 11:30 | Outpatient (CLI) | END 2018-01-03 11:31 | disposition home or self-care (01) | LOC: LAB 11:30 | PROVIDERS: ATTEND Internal Medicine | DX: R10.9 Unspecified abdominal pain (principal); R11.0 Nausea | CPT/HCPCS: 36415; 80053; 82150; 83690; 85025 ==

== ENCOUNTER 2018-02-13 06:48 | Day surgery (SDC) ==
[2018-02-13] MEDS ORDERED: LIDOCAINE 1% 20 ML MDV ID STA (07:04)
[2018-02-13 07:14] VITALS: TEMP 97.6
[2018-02-13] MEDS ORDERED: VERSED ONE (08:01)
[2018-02-13] MEDS ORDERED: DIPRIVAN 20 ML VIAL IVP ONE (08:01)
[2018-02-13] MEDS ORDERED: SUBLIMAZE ONE (08:01)
--- NOTE | 2018-02-14 08:28 | OP ---
INDICATIONS FOR PROCEDURE: 62 year old female presents complaining of intermittent dysphagia. She also has break through reflux. MEDICATIONS: SEE ANESTHESIA NOTES. PROCEDURE: ENDOSCOPY. SE BIOPSY AND MONTSERRATIAN DILATION. REPORT: The risks, benefits, alternatives and limitations were discussed in detail with the patient. Informed consent was obtained. After adequate sedation was achieved, the video endoscope was introduced in the posterior pharynx and esophagus under direct vision and easily advanced down to the second portion of the duodenum. I then slowly withdrew the scope in circumferential manner and examined the mucosa quite carefully. The duodenal mucosa appeared unremarkable as did the duodenal bulb. The antrum body was mildly erythematous. Two biopsies from the antrum wall and body were taken for H. Pylori testing. The scope was retroflexed to look at the cardia and fundus which was unremarkable. The scope was anteflexed and withdrawn back through the esophagus. The GE junction was located at the top of the gastric folds at the diaphragmatic hiatus. The esophagus it's self appeared unremarkable in it's entire length. I then advanced the scope back down the gastric lumen and placed the guidewire and withdrew the scope. Over the guidewire I easily advanced the 54 [place] Swiss Dilator. The patient tolerated the procedure well with stable vital signs and pulse oximetry throughout. IMPRESSION: 1. Mild Erythema in the gastric lumen but otherwise unremarkable exam 2. Successful passive dilation of the esophagus RECOMMENDATIONS: 1. Strict reflux precautions and I have gone over these with the patient 2. Advised to make sure she cuts and chews her food well 3. Await H.Pylori 4. We will see her back in the office as needed. CC: Dr. Puneet GAN
[2018-02-15 12:33] VITALS: BP 127/66
== END 2018-02-13 09:05 | disposition home or self-care (01) ==
LOC: SURG 06:48
PROVIDERS: ATTEND Internal Medicine Gastroenterology
DX: K21.9 Gastro-esophageal reflux disease without esophagitis (principal); R13.10 Dysphagia, unspecified
CPT/HCPCS: 87339

== ENCOUNTER 2018-04-05 07:27 | Outpatient (CLI) | END 2018-04-05 07:28 | disposition home or self-care (01) | LOC: LAB 07:27 | PROVIDERS: ATTEND Internal Medicine | DX: E78.5 Hyperlipidemia, unspecified (principal); K21.9 Gastro-esophageal reflux disease without esophagitis | CPT/HCPCS: 36415; 80053; 80061; 83036; 84439; 84443; 85025 ==

== ENCOUNTER 2018-07-24 09:57 | Outpatient (CLI) ==
--- NOTE | 2018-07-25 00:24 | MRI ---
EXAM: Lumbar spine MRI without contrast. HISTORY: Back pain. COMPARISON: Thoracolumbar spine radiographs 06/15/2017 and lumbar spine MRI 03/27/2017. TECHNIQUE: Multiplanar, multisequence MR images were acquired of the lumbar spine without contrast. FINDINGS: Five non-rib bearing lumbar vertebra are present. Conus medullaris ends at L1 and has nor mal morphology and signal intensity. There is a 35% chronic anterior wedge compression deformity of T12 which has increased compression compared to the previous lumbar spine MRI. There is now 3 mm ret ropulsion of the T12 posterior superior cortex which effaces the ventral thecal sac without spinal st enosis and there is mild irregular concavity of the superior endplate. The lumbar vertebra are brook l in height, AP alignment and intrinsic bone marrow signal. There is mild lumbar ventral spondylosis . There is desiccation of the lumbar intervertebral discs from L2-3 to L4-5 and central disc desicca tion at L1-2. The partially visualized liver, spleen and kidneys are unremarkable. There are no paravertebral mass es. T11-12: There is a mild to moderate chronic superior endplate compression fracture of T12 with 3 mm retropulsion of the posterior superior cortex and T11-12 intervertebral disc without spinal stenosis. Neural foramina are patent. T12-L1: The intervertebral disc is normal. L1-2: The intervertebral disc is normal. L2-3: There is a mild disc bulge that minimally narrows the inferior neural foramina bilaterally and minor bilateral facet arthropathy. There is no central canal stenosis. L3-4: There is a mild disc bulge that is asymmetric to the left which narrows the inferior neural fo ramina bilaterally. Mild bilateral facet arthropathy and ligamentum flavum hypertrophy and small efrain ateral facet effusions are present. There is mild left and minor right neural foraminal stenosis. N o central canal stenosis is present. L4-5: There is a mild disc bulge with a small left foraminal fissure and a tiny right foraminal fiss ure. Mild bilateral facet arthropathy and ligamentum flavum hypertrophy is present. There is left l ateral recess stenosis with encroachment on the left L5 nerve roots and minor bilateral foraminal aiyana nosis. There is no central canal stenosis. L5-S1: The intervertebral disc is normal. IMPRESSION: 1. Mild to moderate chronic superior endplate compression fracture T12 which has mildly increased co mpression compared to previously and there is now 3 mm retropulsion of the posterior superior cortex without spinal stenosis. 2. No acute compression fractures. 3. Stable minor lumbar degenerative spondylosis and mild facet arthropathy without spinal stenosis.
== END 2018-07-24 09:58 | disposition home or self-care (01) ==
LOC: RAD 09:57
PROVIDERS: ATTEND Physician Assistant Surgical
DX: M54.5 Low back pain (principal)

== ENCOUNTER 2018-08-07 10:45 | Emergency (ER) | payer OTHER ==
[2018-08-07 10:55] VITALS: BP 131/86; TEMP 97.5; BMI 28.3
[2018-08-07] MEDS ORDERED: TORADOL IM STA (12:06)
[2018-08-07] MEDS ORDERED: NORFLEX PO STA (12:07)
--- NOTE | 2018-08-07 12:09 | ED.PDOC ---
General ED Provider: Dr. SOCORRO VENTURA Chief Complaint: Neck Pain Non-Injury Stated Complaint: Neck and shoulder pain. Onset after getting out of shower this morning and drying off/. pain rt side shoulder and lower neck at C7-T1 Time Seen by Physician: 11:50 Mode of Arrival: Walk-In Information Source: Patient Exam Limitations: No limitations Primary Care Provider: ARCELIA ALLEN Nursing and Triage Documentation Reviewed and Agree: Yes Does patient meet sepsis criteria?: No System Inflammatory Response Syndrome: Not Applicable Sepsis Protocol: For patient's 13 years and over: Temp is 96.8 and below OR 101 and greater Pulse >90 BPM Resp >20/minute Acutely Altered Mental Status Are patient's symptoms suggestive of a new infection, such as: -Pneumonia -Skin, Soft Tissue -Endocarditis -UTI -Bone, Joint Infection -Implantable Device -Acute Abdominal Infection -Wound Infection -Meningitis -Blood Stream Catheter Infection -Unknown Musculoskeletal Complaint Exam - Shoulder Pain Complaint/Exam Mechanism of Injury: Reports: No known trauma Onset/Duration: 4 hrs Symptoms Are: Still present Timing: Constant (positional) Initial Severity: Moderate Current Severity: Moderate Location: Reports: Discrete Character: Reports: Sharp, Aching, Spasmodic Alleviating: Reports: Rest Aggravating: Reports: Movement Associated Signs and Symptoms: Denies: Swelling, Redness, Bruising, Fever, Weakness, Numbness, Tingling Related History: Denies: Similar episode Non-Orthopedic Risk Factors: Reports: None DVT Risk Factors: Reports: None Septic Arthritis Risk Factors: Reports: None Related Surgical History: Reports: None Shoulder Findings: Absent: Swelling, Laceration, Erythema, Other joint pain, Adson's Sign Tenderness: Present: AC joint, Rotator cuff muscles. Absent: Clavicle Limited Range of Motion: Present: Abduction, Extension, External rotation, Rotator cuff muscles Differential Diagnoses: Strain Review of Systems - Review Of Systems Constitutional: Reports: No symptoms Eyes: Reports: No symptoms Ears, Nose, Mouth, Throat: Reports: No symptoms Respiratory: Reports: No symptoms Cardiac: Reports: No symptoms GI: Reports: No symptoms : Reports: No symptoms Musculoskeletal: Reports: Muscle pain, Muscle stiffness, Neck pain Skin: Reports: No symptoms Neurological: Reports: No symptoms Endocrine: Reports: No symptoms Hematologic/Lymphatic: Reports: No symptoms All Other Systems: Reviewed and Negative Past Medical History - Past Medical History Previously Healthy: Yes Endocrine: Reports: Dyslipidemia Cardiovascular: Reports: None Respiratory: Reports: None Hematological: Reports: None Gastrointestinal: Reports: GERD, Pancreatitis Genitourinary: Reports: None Neuro/Psych: Reports: Migraine Musculoskeletal: Reports: Back Pain Cancer: Reports: None Last Menstrual Period: NA - Surgical History General Surgical History: Reports: Hysterectomy, Tonsillectomy - Family History Family History: Reports: Unknown - Social History Smoking Status: Former smoker Hx Substance Use: No Alcohol Screening: Occasionally Physical Exam - Physical Exam Appearance: Well-appearing, No pain distress, Well-nourished Eyes: VANDANA, EOMI, Conjunctiva clear ENT: Ears normal, Nose normal, Oropharynx normal Respiratory: Airway patent, Breath sounds clear, Breath sounds equal, Respirations nonlabored Cardiovascular: RRR, Pulses normal, No rub, No murmur GI/: Soft, Nontender, No masses, Bowel sounds normal, No Organomegaly Musculoskeletal: Normal strength, ROM intact, No edema, No calf tenderness Skin: Warm, Dry, Normal color Neurological: Sensation intact, Motor intact, Reflexes intact, Cranial nerves intact, Alert, Oriented Psychiatric: Affect appropriate, Mood appropriate Critical Care Note - Critical Care Note Total Time (mins): 0 Course - Course Orders, Labs, Meds: Orders Category Date Time Status Ketorolac Tromethamine [Toradol] MEDS 08/07/18 12:06 Discontinued 30 mg IM ONCE STA Orphenadrine Citrate [Norflex] MEDS 08/07/18 12:07 Discontinued 100 mg PO ONCE STA CT CERVICAL SPINE W/O CONTRAST Stat RADS 08/07/18 13:[address] SHOULDER RIGHT W/O CONTRAST Stat RADS 08/07/18 13:12 Completed Medications Discontinued Medications Generic Name Dose Route Start Last Admin Trade Name Freq PRN Reason Stop Dose Admin Ketorolac Tromethamine 30 mg 08/07/18 12:06 08/07/18 12:19 Toradol IM 08/07/18 12:07 30 mg ONCE STA Administration Orphenadrine Citrate 100 mg 08/07/18 12:07 08/07/18 12:17 Norflex PO 08/07/18 12:08 100 mg ONCE STA Administration Vital Signs: Temp Pulse Resp BP Pulse Ox 08/07/18 10:49 97.5 F L 91 H 16 131/86 96 Departure - Departure Time of Disposition: 14:20 Disposition: HOME SELF-CARE Discharge Problem: Right shoulder strain, Degenerative joint disease of cervical spine Instructions: Cervical Strain (ED), Osteoarthritis (ED) Condition: Good Pt referred to PMD for follow-up: Yes IPMP verified?: No Prescriptions: Ketorolac Tromethamine [Toradol] 10 mg PO Q6H PRN #20 tablet PRN Reason: pain Orphenadrine Citrate [Norflex] 100 mg PO Q12H PRN #20 tablet.er PRN Reason: neck pain Allergies/Adverse Reactions: Allergies cephalexin monohydrate [From Keflex] Adverse Reaction (Verified 08/07/18 10:47) sulfamethoxazole [From Bactrim] Adverse Reaction (Verified 08/07/18 10:47) tetracycline [Tetracycline] Adverse Reaction (Verified 08/07/18 10:47) trimethoprim [From Bactrim] Adverse Reaction (Verified 08/07/18 10:47) Home Medications: Ambulatory Orders Calcium Carbonate [Calcium] 500 mg PO BID 07/15/13 Cranberry 400 mg PO DAILY 07/15/13 Multivitamin [Multi-Vitamin Daily] 1 tab PO DAILY 07/15/13 Pravastatin Sodium 10 mg PO BEDTIME 07/15/13 Trazodone HCl 75 mg PO BEDTIME 07/15/13 Zolmitriptan [Zomig] 2.5 mg PO ONCE PRN 07/15/13 Estradiol/Levonorgestrel [Climara Pro Patch] 0.025 mg TP WEEKLY 07/16/13 Cyclobenzaprine HCl [Flexeril] 10 mg PO BID PRN 12/30/14 Diazepam 5 mg PO ev 6-8 hrs PRN #100 04/20/16 Pantoprazole Sodium [Protonix] 40 mg PO DAILY 03/27/17 Oxycodone HCl/Acetaminophen [Percocet 5-325 mg Tablet] 1 each PO TID #15 tablet 03/28/17 Ketorolac Tromethamine [Toradol] 10 mg PO Q6H PRN #20 tablet 08/07/18 Orphenadrine Citrate [Norflex] 100 mg PO Q12H PRN #20 tablet.er 08/07/18 Disposition Discussed With: Patient, Family
--- NOTE | 2018-08-07 13:57 | CT ---
EXAM: CT cervical spine without contrast. HISTORY: Neck pain COMPARISON: None TECHNIQUE: Serial axial images of the cervical spine were obtained from the skull base through the l oswaldo apices without contrast. These were viewed in multiple planes. FINDINGS: Vertebral bodies demonstrate normal height, disc space and alignment. There is no lytic o r blastic lesion. There is mild narrowing and osteophyte formation at the C5-C6. There is mild face t arthropathy. The C1 ring is intact. The odontoid process is unremarkable. Limited views of the soft tissues are unremarkable. IMPRESSION: 1. No acute compression fracture or subluxation. 2. Mild scattered degenerative disease most pronounced at C5-C6.
--- NOTE | 2018-08-07 14:07 | CT ---
EXAM: CT right shoulder HISTORY: Neck and shoulder pain with limited shoulder mobility. No known injury. TECHNIQUE: CT right shoulder without contrast. Multiplanar images were provided. FINDINGS: No fracture is identified. Mild osteoarthritis of the acromioclavicular joint. Glenohumeral joint a ppears grossly normal. There is no joint separation, subluxation or dislocation seen. No gross evid ence of shoulder joint effusion. The soft tissues of the shoulder region appear grossly unremarkable by CT. There is a small left hepatic lobe cyst. IMPRESSION: 1. Mild osteoarthritis. No fracture or subluxation. 2. Soft tissues are grossly within normal limits. 3. Consider correlation with MRI if symptoms persist.
== END 2018-08-07 14:31 | disposition home or self-care (01) ==
LOC: ED 10:45
DX: S46.911A Strain of unspecified muscle, fascia and tendon at shoulder and upper arm level, right arm, initial encounter (principal); M47.812 Spondylosis without myelopathy or radiculopathy, cervical region; X50.1XXA Overexertion from prolonged static or awkward postures, initial encounter
CPT/HCPCS: 96372; 99283

== ENCOUNTER 2018-08-28 09:27 | Outpatient (CLI) ==
--- NOTE | 2018-08-29 11:24 | MAMMO ---
EXAM: Digital screening mammogram with tomosynthesis HISTORY: Screening COMPARISON: 08/01/2017 FINDINGS: Digital MLO and CC views of the right and left breast were performed. Tomosynthesis was performed. Computer aided detection utilized. There are scattered fibroglandular densities. There is no evidence for mass, asymmetry, distortion, or suspicious calcifications in either breast. IMPRESSION: 1. No evidence of malignancy in the right or left breast. 2. Annual screening mammogram is recommended in one year. BIRADS category 1, negative examination
== END 2018-08-28 09:28 | disposition home or self-care (01) ==
LOC: RAD 09:27
PROVIDERS: ATTEND Internal Medicine
DX: Z12.31 Encounter for screening mammogram for malignant neoplasm of breast (principal)

== ENCOUNTER 2018-10-08 11:03 | Outpatient (CLI) | payer OTHER ==
--- NOTE | 2018-10-08 12:48 | MRI ---
EXAM: MRI of the cervical spine without contrast HISTORY: Cervicalgia, pain in neck going down right arm TECHNIQUE: Multiplanar imaging of the cervical spine was performed using T1, T2, inversion recovery, T2 gradient sequences. Comparison none. FINDINGS: There is straightening of the cervical spine. There is no bone marrow edema. The cranioc ervical junction and prevertebral soft tissues are normal. The cervical spinal cord demonstrates nor mal signal on T2W images. I have segmental analysis: C2-C3: The central canal and neural foramina appear patent. C3-C4: The central canal and neural foramina appear adequately patent. There is mild right-sided un cinate hypertrophy. C4-C5: There is cervical spondylosis resulting in mild narrowing of the central canal. The neural f oramina appear adequately patent. C5-C6: There is cervical spondylosis resulting in mild central canal stenosis. The thecal sac measu res 8.2 mm AP. There is uncovertebral joint and facet joint degeneration resulting in moderate right and mild to moderate left foraminal stenosis. C6-C7: There is cervical spondylosis and enlargement of the posterior ligament flavum resulting in m ild central canal stenosis. The thecal sac measures 8.2 mm AP. There is mild narrowing of the neura l foramina. C7-T1: There is cervical spondylosis and enlargement of the posterior ligament flavum resulting in m ild central canal stenosis. There is a superimposed right paracentral, right foraminal broad-based d isc protrusion at this level measuring 3.5 mm AP causing moderate to severe right foraminal stenosis. There is mild narrowing of the left neural foramen. IMPRESSION: At the C7-T1 level there is a right paracentral, right foraminal broad-based disc protru allie causing moderate to severe right foraminal stenosis. Mild central canal stenosis seen within the lower cervical spine as described above seen from the C5 down to the T1 level. No cord signal abnormalities are seen.
== END 2018-10-08 11:04 | disposition home or self-care (01) ==
LOC: RAD 11:03
PROVIDERS: ATTEND Physician Assistant Surgical
DX: M54.2 Cervicalgia (principal)

== ENCOUNTER 2018-10-17 07:07 | Outpatient (CLI) | END 2018-10-17 07:08 | disposition home or self-care (01) | LOC: LAB 07:07 | PROVIDERS: ATTEND Internal Medicine | DX: E78.5 Hyperlipidemia, unspecified (principal) | CPT/HCPCS: 36415; 80053; 80061; 83036; 84443; 85025 ==